=== PATIENT | female | born 1965 | race Caucasian/White ===

== ENCOUNTER → 2020-11-03 | Outpatient (CLI) | payer BC ==
[2020-11-03 20:11] LABS: Basophils # (A) 0.08 X 10*3/uL (0.00-0.10); Basophils % (A) 0.9 %; Eosinophils # (A) 0.38 X 10*3/uL (0.04-0.35); Eosinophils % (A) 4.3 %; HCT 39.1 % (37.2-46.3); HGB 12.9 g/dL (12.0-15.0); Lymphocytes # (A) 4.09 X 10*3/uL (0.90-5.00); Lymphocytes % (A) 45.9 %; MCH 31.8 pg (27.0-32.0); MCV 96.3 fL (80.0-97.0); Mean Platelet Volume 10.4 fL (9.5-12.2); Monocytes # (A) 0.89 X 10*3/uL (0.20-1.00); Neutrophils # (A) 3.43 X 10*3/uL (1.80-7.70); Neutrophils % (A) 38.5 %; Platelet Count 354 X 10*3/uL (140-440); RBC 4.06 X 10*6/uL (4.10-5.20); RDW 12.2 % (11.5-14.5); WBC 8.91 X 10*3/uL (4.50-10.00)
[2020-11-03 21:19] LABS: Gliadin AB IgA, Deaminated NEGATIVE (NEGATIVE); Gliadin AB IgA, Unit 2.3 U/mL; Gliadin AB IgG, Deaminated NEGATIVE (NEGATIVE)
[2020-11-04 16:42] LABS: ALT 12 U/L (8-44); AST 18 U/L (13-35); African American GFR (CKD) 95.5 (60.0-200.0); Albumin/Globulin Ratio 1.84 (1.60-3.17); Alkaline Phosphatase 72 U/L (41-126); C Reactive Protein <0.4 mg/dL (0.0-0.8); Calcium 9.4 mg/dL (8.7-10.3); Carbon Dioxide 17.8 mmol/L (21.6-31.8); Chloride 102 mmol/L (96-109); Globulin 2.5 g/dL (1.6-3.3); Glucose 114 mg/dL (70-110); Non-African American GFR(CKD) 82.4 (60.0-200.0); Potassium 4.3 mmol/L (3.5-5.5); Sodium 137 mmol/L (135-145); Total Bilirubin 0.8 mg/dL (0.3-1.2); Total Protein 7.1 g/dL (6.2-8.2)
== END ==
LOC: LABWHC1 14:10
PROVIDERS: ATTEND Internal Medicine Gastroenterology
DX: K58.0 Irritable bowel syndrome with diarrhea (principal)
CPT/HCPCS: 36415; 80053; 83516; 85025; 86140

== ENCOUNTER → 2021-07-28 | Outpatient (CLI) | payer BC ==
--- NOTE | 2021-07-28 09:50 | CTL ---
EXAMINATION TYPE: CT Low Dose Lung DATE OF EXAM ORDERED: 07/28/2021 COMPARISON: None HISTORY: . Low Dose CT Lung Screening CT DLP: 74.[address] CTDI: 2.10 mGy IV CONTRAST USED: None. SCREENING VISIT: First visit COMPARISON: None. TECHNIQUE: Low dose computed tomography scan was performed through the chest at 1 millimeter thick se ctions and reconstructed images in the coronal plane at [address] DIAGNOSTIC QUALITY: Satisfactory FINDINGS: LUNG NODULES: Not presentLeft lung: no nodules identified.Right lung: no nodules identified. LUNGS: COPD: Severity: None Fibrosis: Severity:None Lymph nodes: None Other findings: None RIGHT PLEURAL SPACE: Effusion: None Calcification: None Thickening: None Pneumothorax: None LEFT PLEURAL SPACE: Effusion: None Calcification: None Thickening: None Pneumothorax: None HEART: Heart Size: Mildly enlarged Coronary calcification: Mild Pericardial effusion: None Ascending thoracic aortic aneurysm measuring 4.2 cm AP dimension. OTHER FINDINGS: Upper abdomen: No significant abnormality Bony thorax: Degenerative changes Supraclavicular region: No significant abnormalityOther: No significant abnormalityI IMPRESSION: No distinct pulmonary nodule appreciated. Ascending thoracic aortic aneurysm as noted abo ve. FOLLOW UP CT CHEST RECOMMENDATION: Follow-up screening in one year CT LUNG RAD: LUNG RAD CATEGORY 1 negative
--- NOTE | 2021-07-28 13:32 | EST ---
EXERCISE STRESS AGE: 56 SEX: F HT: 5'3" WT: 130 lbs. PROTOCOL: Alber STAGE: 4 DURATION OF EXERCISE: 12:19 HEART RATE REST: 80 BLOOD PRESSURE REST: 120/84 MAXIMUM HEART RATE ACHIEVED: 140 MAXIMUM BLOOD PRESSURE: 161/90 85% MPHR: 139 100% MPHR: 163 METS: 13.1 INDICATIONS: Chest pain CLINICAL INFORMATION: Baseline rhythm is a sinus mechanism, rate of 80, normal axis and intervals, nonspecific ST-T wave changes. Baseline blood pressure 120/84 mmHg. Patient exercised on Alber protocol for 12 minutes 19 seconds, reaching a peak rate of 140 beats per minute, which is equal to 85% of maximum predicted heart rate. Peak blood pressure 161/90 mmHg. Test was terminated secondary to fatigue. There was no chest pain. Electrocardiograph monitoring revealed no evidence of diagnostic ischemic ST deviation. FINDINGS: 1. Excellent exercise tolerance with no chest discomfort. 2. Normal stress electrocardiogram with no evidence of stress-induced ischemia. MMODL / IJN: [id number] /
== END | disposition home or self-care (01) ==
LOC: RADCTMAIN 09:14
PROVIDERS: ATTEND Family Medicine
DX: I71.2 Thoracic aortic aneurysm, without rupture (principal); Z87.891 Personal history of nicotine dependence
CPT/HCPCS: 71271; 93017

== ENCOUNTER → 2024-04-07 | Outpatient (CLI) | payer BC ==
--- NOTE | 2024-04-07 17:05 | CT ---
CTA CHEST EXAMINATION TYPE: CT angio chest DATE OF EXAM: 04/07/2024 INDICATION: aneurysm CT DLP: 489.7 mGycm, Automated exposure control for dose reduction was used. CONTRAST: Patient injected with 100 mL of Isovue 370. COMPARISON: TECHNIQUE: CT of the chest is performed on a spiral scan at 2 mm thick sections. Study is performed with intravenous contrast timed for evaluation for pulmonary embolism. This will limit additional po rtions of the evaluation. 3-D MIP images reconstructed by the technologist are reviewed on the compu ter in the coronal and sagittal planes. FINDINGS: No persistent filling defects are evident to suggest an acute pulmonary embolism. No mediastinal or hilar adenopathy enlarged by CT criteria is evident. There is a retroesophageal right subclavian artery. The ascending aorta diameter at the level of the main pulmonary artery is 4.1 cm. The main pulmonary artery diameter at the bifurcation is 2.3 cm. Mild Coronary artery calcifications present. Lung windows are clear. Limited CT sections were through the upper abdomen. Renal cysts are present on the left. IMPRESSION: 1. Ascending thoracic aortic aneurysm of 4.1 cm. Aortic tapers to its visualized course. [facility], Workstation: [email or web address], 04/07/2024 5:02 PM
== END | disposition home or self-care (01) ==
LOC: RADCTMAIN 16:04
PROVIDERS: ATTEND Surgery
DX: I71.21 Aneurysm of the ascending aorta, without rupture (principal)
CPT/HCPCS: 71275; Q9967